=== PATIENT | male | born 1970 | race Caucasian/White ===

== ENCOUNTER 2018-11-29 20:59 | Emergency (ER) | payer OTHER, MEDICAID ==
[~2018-11-29 20:59] MED LIST: PRED5TAB
== END 2018-11-30 03:49 | disposition home or self-care (01) ==
DX: F10.129 Alcohol abuse with intoxication, unspecified (principal); F14.129 Cocaine abuse with intoxication, unspecified; G89.29 Other chronic pain; M54.9 Dorsalgia, unspecified; F32.9 Major depressive disorder, single episode, unspecified; R47.81 Slurred speech; Y90.9 Presence of alcohol in blood, level not specified

== ENCOUNTER 2018-12-13 23:27 | Emergency (ER) | payer MEDICAID, OTHER ==
[~2018-12-13] VITALS: Ht 177.8 cm; Wt 86.2 kg
[2018-12-13 23:31] VITALS: BP 144/94
[2018-12-13 23:43] LABS: BASOPHILS # (AUTO) 0.1 /CMM (0.0-0.2); BASOPHILS % (AUTO) 1.2 % (0.0-2.0); EOSINOPHILS % (AUTO) 0.1 % (0.0-6.0); HEMATOCRIT 42 % (39-51); HEMOGLOBIN 13.9 g/dL (13.5-17.5); LYMPHOCYTES # (AUTO) 0.6 /CMM (0.8-4.8); LYMPHOCYTES % (AUTO) 5.5 % (20.0-44.0); MEAN CORPUSCULAR HGB CONC 33 g/dl (31.0-36.0); MEAN CORPUSCULAR VOLUME 84 fL (80-96); MONOCYTES # (AUTO) 0.5 /CMM (0.1-1.30); MONOCYTES % (AUTO) 4.4 % (2.0-12.0); NEUTROPHILS # (AUTO) 9.2 /CMM (1.8-8.9); NEUTROPHILS % (AUTO) 88.8 % (43.0-81.0); PLATELET COUNT (AUTO) 286 /CMM (150-450); RED BLOOD CELL COUNT(AUTO) 4.97 MIL/uL (4.5-6.0); WHITE BLOOD COUNT (AUTO) 10.3 K/uL (4.3-11.0)
[2018-12-13 23:50] LABS: CALCIUM, SERUM 8.9 mg/dL (8.5-10.1); CREATININE 1.2 mg/dL (0.6-1.3); POTASSIUM 3.6 mmol/L (3.5-5.1)
[2018-12-13 23:56] LABS: ALBUMIN 3.8 g/dL (3.4-5.0); BILIRUBIN,DIRECT 0.1 mg/dL (0.0-0.2); BILIRUBIN,TOTAL 0.1 mg/dL (0.2-1.0); SALICYLATE 1.2 mg/dL (2.8-20.0); TOTAL PROTEIN, SERUM 7.4 g/dL (6.4-8.2)
--- NOTE | 2018-12-13 23:56 | NUR ---
URINE COLLECTED AND SENT TO LAB
[2018-12-13 23:58] LABS: APPEARANCE,URINE Clear (CLEAR); BILIRUBIN,URINE Negative (NEGATIVE); BLOOD, URINE Negative Ery/uL (NEGATIVE); COLOR,URINE Yellow (YELLOW); KETONES,URINE Negative (NEGATIVE); LEUKOCYTE ESTERASE ,URINE Negative (NEGATIVE); NITRITE, URINE Negative (NEGATIVE); PROTEIN,URINE Negative (NEGATIVE); UGLUCOSE Negative (NEGATIVE); UROBILINOGEN,URINE 0.2 EU/dL (0.2)
== END 2018-12-14 02:13 | disposition home or self-care (01) ==
LOC: ER 23:28
DX: F10.129 Alcohol abuse with intoxication, unspecified (principal); G89.29 Other chronic pain; F32.9 Major depressive disorder, single episode, unspecified; Z79.899 Other long term (current) drug therapy; Y90.6 Blood alcohol level of 120-199 mg/100 ml
CPT/HCPCS: 36415; 80048; 80076; 80305; 80307; 80329; 81001; 85025; 99283; G0480; 81000-TC

== ENCOUNTER 2024-07-28 16:43 | Emergency (ER) | payer MEDICARE ==
[~2024-07-28] VITALS: Ht 170.2 cm; Wt 70.3 kg
[2024-07-28] MEDS ORDERED: BENZ1TAB7 PO (17:18)
[2024-07-28] MEDS ORDERED: KETOROLAC TROMETHAMINE 15 MG/ML VIAL ONE (17:45)
[2024-07-28] MEDS: KETOROLAC TROMETHAMINE 15 MG/ML VIAL IM ONE (17:53)
[2024-07-28 20:08] VITALS: BP 110/62; TEMP 98.1; O2SAT 99
[2024-07-29] MEDS ORDERED: ACET-73 PO (06:14)
== END 2024-07-28 20:08 | disposition home or self-care (01) ==
LOC: ER 16:45
DX: M54.50 Low back pain, unspecified (principal); Z76.0 Encounter for issue of repeat prescription; G20.A1 Parkinson's disease without dyskinesia, without mention of fluctuations; G89.29 Other chronic pain; Z59.02 Unsheltered homelessness; Z79.899 Other long term (current) drug therapy
CPT/HCPCS: 99283; 96372; J1885

== ENCOUNTER 2024-07-28 20:57 | Emergency (ER) | payer MEDICARE ==
[~2024-07-28] VITALS: Ht 177.8 cm; Wt 72.6 kg
[~2024-07-28 20:57] MED LIST changes: +BENZ1TAB7 PO
[2024-07-28 21:06] VITALS: BP 107/62; TEMP 97.8; O2SAT 98
[2024-07-29] MEDS ORDERED: ACET-73 PO (06:14)
== END 2024-07-28 23:59 | disposition left against medical advice (07) ==
LOC: ER 20:59
DX: R53.1 Weakness (principal); Z53.21 Procedure and treatment not carried out due to patient leaving prior to being seen by health care provider

== ENCOUNTER 2024-07-29 02:16 | Emergency (ER) | payer MEDICARE ==
[~2024-07-29] VITALS: Ht 167.6 cm; Wt 72.6 kg
[2024-07-29 02:55] VITALS: BP 119/56; TEMP 98; O2SAT 98
[2024-07-29] MEDS ORDERED: ACETAMINOPHEN ES 500 MG TABLET ONE (06:05)
[2024-07-29] MEDS: ACETAMINOPHEN ES 500 MG TABLET PO ONE (06:07)
[2024-07-29] MEDS ORDERED: ACET-73 PO (06:14)
== END 2024-07-29 06:34 | disposition home or self-care (01) ==
LOC: ER 02:19
DX: G89.29 Other chronic pain (principal); G20.A1 Parkinson's disease without dyskinesia, without mention of fluctuations; Z76.5 Malingerer [conscious simulation]; Z59.02 Unsheltered homelessness; Z79.899 Other long term (current) drug therapy